=== PATIENT | female | born 1970 | race Caucasian/White ===

== ENCOUNTER 2021-06-06 15:04 | Emergency (ER) | payer OTHER, SELFPAY ==
[2021-06-06] MEDS ORDERED: ACETAMINOPHEN 325 MG TAB PO ONE (17:40)
[2021-06-06] MEDS ORDERED: IBUPROFEN 600MG TAB PO ONE (18:35)
[2021-06-06 19:12] VITALS: BP 139/83
== END 2021-06-06 19:14 | disposition home or self-care (01) ==
LOC: M ED 15:04
DX: R05.9 Cough, unspecified (principal); R50.9 Fever, unspecified; R51.9 Headache, unspecified; M79.10 Myalgia, unspecified site; Z88.5 Allergy status to narcotic agent
CPT/HCPCS: 99284; U0003

== ENCOUNTER 2021-08-12 18:20 | Emergency (ER) | payer OTHER ==
[2021-08-12] MEDS ORDERED: NS 1,000 ML IV ONE (20:00)
[2021-08-12] MEDS ORDERED: METOCLOPRAMIDE INJ 10MG/2ML VIAL (J2765 PER 1) IV ONE (20:00)
[2021-08-12 21:00] LABS: ALBUMIN 3.9 GM/DL (3.2-5.2); ALT/SGPT 20 U/L (12-78); BILIRUBIN,DIRECT < 0.1 MG/DL (0.0-0.2); BILIRUBIN,TOTAL 0.8 MG/DL (0.2-1.0); BLOOD UREA NITROGEN 8 MG/DL (7-18); CALCIUM LEVEL 8.8 MG/DL (8.5-10.1); CARBON DIOXIDE LEVEL 21 MEQ/L (21-32); CHLORIDE LEVEL 108 MEQ/L (98-107); CREATININE FOR GFR 0.94 MG/DL (0.55-1.30); GLOMERULAR FILTRATION RATE > 60.0 (>58); GLUCOSE, FASTING 105 MG/DL (70-100); LIPASE 106 U/L (73-393); POTASSIUM SERUM 4.2 MEQ/L (3.5-5.1); SODIUM LEVEL 137 MEQ/L (136-145); TOTAL PROTEIN 8.2 GM/DL (6.4-8.2)
[2021-08-12] MEDS ORDERED: ISOVUE-370 76% 100ML VIAL As Ordered ONE (21:07)
[2021-08-12 22:04] LABS: BASO % 0.3 % (0.0-1.0); EOS # 0.3 10^3/uL (0.0-0.5); EOS % 2.5 % (0.0-3.0); HEMATOCRIT 45.3 % (36.0-47.0); HEMOGLOBIN 15.2 g/dl (12.0-15.5); LYMPH # 1.5 10^3/uL (1.5-5.0); LYMPH % 14.5 % (24.0-44.0); MEAN CORPUSCULAR HEMOGLOBIN 28.6 pg (27.0-33.0); MEAN CORPUSCULAR HGB CONC 33.6 g/dl (32.0-36.5); MEAN CORPUSCULAR VOLUME 85.3 fl (80.0-96.0); MONO # 0.5 10^3/uL (0.0-0.8); MONO % 5.3 % (2.0-8.0); NEUTROPHILS # 7.9 10^3/uL (1.5-8.5); NEUTROPHILS % 77.1 % (36.0-66.0); PLATELET COUNT, AUTOMATED 282 10^3/uL (150-450); RED BLOOD COUNT 5.31 10^6/uL (4.00-5.40); WHITE BLOOD COUNT 10.2 10^3/uL (4.0-10.0)
[2021-08-12 22:15] VITALS: BP 119/68
== END 2021-08-12 22:33 | disposition home or self-care (01) ==
LOC: EDBD 18:20 → M ED 18:20
DX: R19.7 Diarrhea, unspecified (principal); E27.9 Disorder of adrenal gland, unspecified; K76.0 Fatty (change of) liver, not elsewhere classified; M85.3 Osteitis condensans; Z88.8 Allergy status to other drugs, medicaments and biological substances
CPT/HCPCS: 74177; 80048; 80076; 83690; 85025; 93041; 96361; 96374; 99284; J2765; Q9967

== ENCOUNTER → 2021-08-17 | Outpatient (REF) | LOC: M LAB 09:32 | PROVIDERS: ATTEND Nurse Practitioner Adult Health | DX: Z00.00 Encounter for general adult medical examination without abnormal findings (principal) ==

== ENCOUNTER 2021-10-01 18:02 | Emergency (ER) | payer OTHER ==
[~2021-10-01] VITALS: Ht 154.9 cm; Wt 113.2 kg
[2021-10-01] MEDS ORDERED: LIDOCAINE 2% MDV 20ML VIAL SC ONE (19:35)
[2021-10-01] MEDS ORDERED: NEOSPORIN OINT 0.9 GM PKT TOP ONE (19:55)
[2021-10-01] MEDS ORDERED: BOOSTRIX/ADACEL VACCINE (DIPHTH/PERTUSS/ACELL/TETANUS) 0.5ML SYR IM ONE (19:55)
[2021-10-01 20:18] VITALS: BP 111/55
== END 2021-10-01 20:19 | disposition home or self-care (01) ==
LOC: M ED 18:02
DX: S61.412A Laceration without foreign body of left hand, initial encounter (principal); W26.0XXA Contact with knife, initial encounter; Y92.009 Unspecified place in unspecified non-institutional (private) residence as the place of occurrence of the external cause; F17.200 Nicotine dependence, unspecified, uncomplicated; Z88.8 Allergy status to other drugs, medicaments and biological substances

== ENCOUNTER 2021-10-07 09:52 | Emergency (ER) | payer OTHER ==
[~2021-10-07] VITALS: Ht 154.9 cm; Wt 112.0 kg
[2021-10-07 09:53] VITALS: BP 134/81
[2021-10-07] MEDS ORDERED: ACET-683 PO (10:04)
[2021-10-07] MEDS ORDERED: AMOX500C PO (11:34)
== END 2021-10-07 11:50 | disposition home or self-care (01) ==
LOC: M ED 09:52
DX: J02.0 Streptococcal pharyngitis (principal); E66.9 Obesity, unspecified; Z88.2 Allergy status to sulfonamides; Z98.890 Other specified postprocedural states

== ENCOUNTER 2021-11-15 12:50 | Emergency (ER) | payer OTHER ==
[~2021-11-15] VITALS: Ht 154.9 cm; Wt 112.7 kg
[~2021-11-15 12:50] MED LIST: ACET-683 PO; AMOX500C PO
[2021-11-15] MEDS ORDERED: TETRACAINE 0.5% OPHTH SOLN 4ML OU ONE (16:50)
[2021-11-15] MEDS ORDERED: FLUORESCEIN OPHTH 1 MG STRIP OU ONE (16:50)
[2021-11-15] MEDS ORDERED: POLYSOL OP (17:08)
[2021-11-15 17:13] VITALS: BP 124/62
== END 2021-11-15 17:31 | disposition home or self-care (01) ==
LOC: M ED 12:50
DX: H10.33 Unspecified acute conjunctivitis, bilateral (principal); Z88.8 Allergy status to other drugs, medicaments and biological substances

== ENCOUNTER 2021-12-19 09:32 | Emergency (ER) | payer OTHER ==
[~2021-12-19] VITALS: Ht 154.9 cm; Wt 114.9 kg
[~2021-12-19 09:32] MED LIST changes: +POLYSOL OP
[2021-12-19] MEDS ORDERED: OXYM15SP2 (11:50)
[2021-12-19] MEDS ORDERED: BENZ200C70 PO (11:50)
[2021-12-19] MEDS ORDERED: ACETAMINOPHEN 325 MG TAB PO ONE (11:50)
[2021-12-19 12:00] VITALS: BP 118/74
== END 2021-12-19 12:01 | disposition home or self-care (01) ==
LOC: M ED 09:32
DX: J06.9 Acute upper respiratory infection, unspecified (principal); Z88.8 Allergy status to other drugs, medicaments and biological substances

== ENCOUNTER 2022-04-11 17:52 | Emergency (ER) | payer OTHER ==
[~2022-04-11] VITALS: Ht 152.4 cm; Wt 109.1 kg
[~2022-04-11 17:52] MED LIST changes: +BENZ200C70 PO; +OXYM15SP2
[2022-04-11] MEDS ORDERED: KETOROLAC 30 MG/ML 1ML VIAL IM ONE (23:40)
[2022-04-11] MEDS ORDERED: LIDOCAINE 5% (LIDODERM) PATCH TD ONE (23:40)
[2022-04-12] MEDS ORDERED: METH-1164 PO (00:18)
[2022-04-12 00:45] VITALS: BP 120/77
== END 2022-04-12 00:45 | disposition home or self-care (01) ==
LOC: M ED 17:52
DX: M54.2 Cervicalgia (principal); V43.52XA Car driver injured in collision with other type car in traffic accident, initial encounter; Z91.09 Other allergy status, other than to drugs and biological substances

== ENCOUNTER 2022-06-03 01:34 | Emergency (ER) | payer OTHER ==
[~2022-06-03] VITALS: Ht 154.9 cm; Wt 114.7 kg
[~2022-06-03 01:34] MED LIST changes: +METH-1164 PO
[2022-06-03 01:35] VITALS: BP 155/80
[2022-06-03] MEDS ORDERED: NAPR-837 PO (05:04)
[2022-06-03] MEDS ORDERED: KETOROLAC 60MG 2ML VIAL IM ONE (05:05)
[2022-06-03] MEDS ORDERED: COLCHICINE 0.6 MG TABLET PO ONE (05:05)
== END 2022-06-03 05:37 | disposition home or self-care (01) ==
LOC: M ED 01:34
DX: M10.072 Idiopathic gout, left ankle and foot (principal); Z88.5 Allergy status to narcotic agent; Z79.891 Long term (current) use of opiate analgesic
CPT/HCPCS: 73630; 96372; 99283; J1885

== ENCOUNTER 2022-09-09 06:11 | Emergency (ER) | payer OTHER ==
[~2022-09-09] VITALS: Ht 154.9 cm; Wt 115.6 kg
[~2022-09-09 06:11] MED LIST changes: +NAPR-837 PO
[2022-09-09] MEDS ORDERED: LIDOCAINE 4% CREAM 5GM (LMX4) TOP ONE (08:20)
[2022-09-09] MEDS ORDERED: NAPROXEN 250 MG TAB PO ONE (08:20)
[2022-09-09 10:00] VITALS: BP 110/60; TEMP 96.1; O2SAT 97
== END 2022-09-09 10:01 | disposition home or self-care (01) ==
LOC: M ED 06:11
DX: S59.912A Unspecified injury of left forearm, initial encounter (principal); W10.8XXA Fall (on) (from) other stairs and steps, initial encounter; Y92.009 Unspecified place in unspecified non-institutional (private) residence as the place of occurrence of the external cause